=== PATIENT | female | born 1950 | race Caucasian/White ===

== ENCOUNTER → 2019-01-17 16:54 | Outpatient (CLI) | payer MEDICARE, SELFPAY ==
--- NOTE | 2019-01-17 16:58 | DI.MRI.S_ITS ---
PROCEDURE: MR LUMBAR SPINE WO CON INDICATIONS: LOW BACK PAIN WITH RIGHT LEG RADICULAR PAIN TECHNIQUE: Noncontrast sagittal T1 spin echo and T2 fast echo, sagittal STIR, axial T1 and T2 fast spin echo through the lumbar spine. In cases with scoliosis, additional coronal T2 fast spin echo may be performed. COMPARISON: [facility] [place], CR, SPINE LUMB 6+VW, 06/21/2016, 16:34. [facility], MR, L-SPINE WITHOUT CONTRAST, 05/28/2015, 7:36. FINDINGS: Image quality: Excellent. Alignment and Curvature: There is normal bony alignment. Bone Marrow: Marrow is of normal overall signal. No acute vertebral body compression fractures. Spinal Cord: Conus medullaris terminates at the L1-L2 level. Visualized cord demonstrates normal signal and size. Paraspinous Soft Tissues: No paravertebral masses. T12-L1: No canal stenosis or foraminal stenosis. Facet joints are unremarkable. L1-L2: Not significantly changed. Moderate chronic disc height loss. Mild posterior disc plus osteophyte. No canal stenosis mild bilateral foraminal stenosis. Mild bilateral facet hypertrophy. L2-L3: Not significantly changed. Moderate to severe disc height loss. Posterior disc bulge. Mild bilateral foraminal stenosis. Mild bilateral facet hypertrophy. L3-L4: Not significantly changed. Moderate disc height loss. Mild disc bulge. No canal stenosis. Mild bilateral foraminal stenosis. Disc material abuts the left L3 nerve root in the foramen. Bilateral facet hypertrophy. L4-L5: No canal stenosis. Mild right and an impressive left facet hypertrophy. Moderate right foraminal stenosis secondary to disc bulge and facet and ligament hypertrophy. There is impingement on the right L4 nerve root sleeve in the right foramen. There is mild left foraminal stenosis. L5-S1: Bilateral facet hypertrophy. No canal stenosis or foraminal stenosis. IMPRESSION: 1. No central canal stenosis. 2. Multilevel facet hypertrophy. 3. Multilevel foraminal narrowing as described above. This includes moderate right foraminal stenosis at L4-L5 with impingement on the right L4 nerve root sleeve. Question: Does this patient have a right L4 radiculopathy? Dictated by: Rashad Call M.D. on 01/17/2019 at 19:50 Approved by: Rashad Call M.D. on 01/17/2019 at 20:01
== END ==
PROVIDERS: PCP Family Medicine; Visit Provider Physical Medicine & Rehabilitation Pain Medicine
DX: M54.5 Low back pain (principal); M54.16 Radiculopathy, lumbar region; M48.061 Spinal stenosis, lumbar region without neurogenic claudication
CPT/HCPCS: 72148

== ENCOUNTER → 2021-07-14 11:11 | Outpatient (CLI) | payer MEDICARE, SELFPAY ==
--- NOTE | 2021-07-14 | DI.MRI.S_ITS ---
PROCEDURE: MR LUMBAR SPINE WO CON INDICATIONS: Spinal stenosis, lumbar region TECHNIQUE: Noncontrast sagittal T1 spin echo and T2 fast echo, sagittal STIR, axial T1 and T2 fast spin echo through the lumbar spine. In cases with scoliosis, additional coronal T2 fast spin echo may be performed. COMPARISON: [facility], MR, MR LUMBAR SPINE WO CON, 01/17/2019, 17:07. [facility] [place], CR, XR LUMBAR SPINE WITH OLBIQUES PLUS FLEXION EXTENSION, 01/08/2019, 11:48. [facility] [place], CR, XR LUMBAR SPINE WITH OLBIQUES PLUS FLEXION EXTENSION, 06/23/2021, 9:23. [facility], MR, L-SPINE WITHOUT CONTRAST, 05/28/2015, 7:36. FINDINGS: Image quality: Diagnostic, with note made of motion artifact. Alignment and Curvature: There is minimal retrolisthesis seen at L1-L2, L2-L3, and L3-L4. Bone Marrow: Marrow is of normal overall signal. No acute vertebral body compression fractures. Spinal Cord: Conus medullaris terminates at the L1 level. Visualized cord demonstrates normal signal and size. Paraspinous Soft Tissues: No paravertebral masses. T12-L1: Normal appearance. L1-L2: Mild loss of disc height is seen. Loss of disc signal is seen. Bridging endplate osteophytes are seen. Mild to moderate disc bulge is seen. Mild facet joint hypertrophy is seen. At least moderate bilateral neural foraminal narrowing is seen, left worse than right. Mild central canal narrowing is seen. There is slight progression compared to 2019. L2-L3: At least moderate loss of disc height and disc signal can be seen. At least moderate disc bulge is seen, which is eccentric to the left. There is a superimposed central disc protrusion. Bridging endplate osteophytes are seen. There is moderate to severe bilateral neural foraminal narrowing seen. There is a degree of compression seen upon the exiting nerve roots. At least moderate central canal narrowing is seen at this level. These degenerative changes are worse than in 2019. L3-L4: Moderate loss of disc height is seen. Loss of disc signal is seen. Moderate generalized disc bulge is seen. Moderate facet joint hypertrophy is seen. Moderate to severe bilateral neural foraminal narrowing is seen, right worse than left. There is a degree of compression seen upon the exiting nerve roots. Mild to moderate central canal narrowing is seen. When compared to 2019, these degenerative changes have progressed. L4-L5: The disc height is well-preserved. Loss of disc signal is seen at this level. At least moderate disc bulge is seen. There is a superimposed central disc protrusion. There is at least moderate facet hypertrophy seen, left worse than right. Moderate to severe bilateral neural foraminal narrowing can be seen, right worse than left. There is a degree of compression seen upon the exiting nerve roots. Moderate central canal narrowing is seen. These degenerative changes are mildly progressed compared to 2019. L5-S1: The disc height and disk signal are well-preserved. Mild generalized disc bulge is seen. At least moderate facet hypertrophy is seen at this level. There is moderate right-sided and no significant left-sided neural foraminal narrowing seen. No central canal narrowing is seen. When comparison is made with the prior images, these findings are similar. IMPRESSION: Lumbar spine degenerative change are seen, which have progressed at several levels compared to 2019. Dictated by: Brent Yanes M.D. on 07/14/2021 at 12:47 Approved by: Brent Yanes M.D. on 07/14/2021 at 12:52
== END ==
PROVIDERS: PCP Family Medicine; Referring Provider Physical Medicine & Rehabilitation Pain Medicine; Visit Provider Physical Medicine & Rehabilitation Pain Medicine
DX: M48.07 Spinal stenosis, lumbosacral region (principal); M48.062 Spinal stenosis, lumbar region with neurogenic claudication; M47.816 Spondylosis without myelopathy or radiculopathy, lumbar region; M47.817 Spondylosis without myelopathy or radiculopathy, lumbosacral region
CPT/HCPCS: 72148

== ENCOUNTER → 2021-12-20 11:19 | Outpatient (CLI) | payer MEDICARE, SELFPAY ==
--- NOTE | 2021-12-20 11:22 | DI.RAD.S_ITS ---
PROCEDURE: XR KNEE LT 3V INDICATIONS: Knee pain TECHNIQUE: 3 views of the knee were acquired. COMPARISON: [facility], CR, KNEES BILATERAL 1V, 02/12/2009, 10:38. FINDINGS: Bones: No fractures or dislocations. Tiny superior patellar osteophyte. No suspicious bony lesions. Soft tissues: Trace joint effusion. No suspicious soft tissue calcifications. Chondrocalcinosis. IMPRESSION: Mild left knee DJD. Chondrocalcinosis. Dictated by: Geovany Aguilar M.D. on 12/20/2021 at 12:04 Approved by: Geovany Aguilar M.D. on 12/20/2021 at 12:05
== END ==
PROVIDERS: PCP Family Medicine; Referring Provider Nurse Practitioner Critical Care Medicine; Visit Provider Nurse Practitioner Critical Care Medicine
DX: M17.12 Unilateral primary osteoarthritis, left knee (principal); M11.262 Other chondrocalcinosis, left knee; M25.562 Pain in left knee
CPT/HCPCS: 73562

== ENCOUNTER → 2021-12-25 11:01 | Outpatient (CLI) | payer MEDICARE, SELFPAY ==
--- NOTE | 2021-12-25 | DI.MRI.S_ITS ---
PROCEDURE: MR THORACIC SPINE WO CON INDICATIONS: Dorsalgia, unspecified TECHNIQUE: Noncontrast sagittal T1 spine echo and T2 fast spin echo, sagittal STIR, axial T1 and T2 fast spin echo through the thoracic spine. COMPARISON: [facility] [place], CR, XR THORACIC SPINE 2 VIEWS, 12/08/2021, 9:52. FINDINGS: Image quality: Excellent. Alignment and Curvature: Accentuated thoracic kyphosis is seen. Images are repeated, with some improvement. Bone Marrow: Marrow is of normal overall signal. No acute vertebral body compression fractures. Spinal Cord: Visualized spinal cord is normal in size and signal. Paraspinous Soft Tissues: No paravertebral masses. Miscellaneous: Mild degenerative changes are seen, with scattered levels of minimal to mild disc space narrowing. Several levels of mild bridging anterior osteophytes can be seen. No significant neural foraminal or central canal narrowing can be seen. IMPRESSION: Accentuated thoracic kyphosis, with mild, age-appropriate degenerative changes. No recent fracture. No significant neural foraminal or central canal narrowing can be seen. Dictated by: Brent Yanes M.D. on 12/25/2021 at 11:46 Approved by: Brent Yanes M.D. on 12/25/2021 at 11:48
== END ==
PROVIDERS: PCP Family Medicine; Referring Provider Physical Medicine & Rehabilitation Pain Medicine; Visit Provider Physical Medicine & Rehabilitation Pain Medicine
DX: M40.204 Unspecified kyphosis, thoracic region (principal); M47.814 Spondylosis without myelopathy or radiculopathy, thoracic region; M54.9 Dorsalgia, unspecified
CPT/HCPCS: 72146

== ENCOUNTER 2022-10-25 09:15 | Emergency (ER) | payer MEDICARE, SELFPAY ==
[2022-10-25] VITALS (30 sets, daily range): BP systolic 126–177; BP diastolic 56–85; PULSE 68–110; RESP 12–29; TEMP 36.1–36.6; O2SAT 95–99; BMI 29.9
--- NOTE | 2022-10-25 09:45 | DI.RAD.S_ITS ---
PROCEDURE: XR CHEST 1V INDICATIONS: SOB TECHNIQUE: One view of the chest was acquired. COMPARISON: None. FINDINGS: Surgical changes and devices: None. Lungs and pleura: Lungs are clear. No pleural effusions or pneumothorax. Mediastinum: Mediastinal contours appear normal. Heart size is normal. Bones and chest wall: Right 7th minimally displaced rib fracture. Overlying soft tissues appear unremarkable. IMPRESSION: Minimally displaced 7th right rib fracture. Dictated by: Maria Victoria Mcleod M.D. on 10/25/2022 at 10:13 Approved by: Maria Victoria Mcleod M.D. on 10/25/2022 at 10:14
--- NOTE | 2022-10-25 09:45 | ED.ARRPALP ---
HPI - Arrhythmia/Palpitations General Chief Complaint: Arrhythmia/Palpitations Stated Complaint: sent by Malachi BP 164/70 pulse 111 resting T-3 Time Seen by Provider: 10/25/22 09:26 Source: patient Mode of arrival: Ambulatory History of Present Illness HPI narrative: Patient is a 72-year-old female who was sent to the emergency department by her primary doctor. States that approximately 1 week ago she had a fairly sudden onset of having nausea and feeling like she was going to have diarrhea. She ended up not throwing up but did have diarrhea for several days. That has completely resolved. Since that time she states that she is had issues with shortness of breath on exertion and also an elevated heart rate on exertion. She denies chest pain. No lightheadedness. She did have episodes where she feel like her legs were giving out on her and also her arms tingling. She denies any fevers. She is tolerating oral intake. She does have a history of asthma. She is taking her asthma medications at home but she states that she only uses them occasionally prior to this and they were older prescriptions. She took her blood pressure and the systolic was in the 160s. She contacted her primary doctor's office who told her to come to the emergency department. When she is lying down in bed she is asymptomatic. Related Data Home Medications Medication Instructions Recorded Confirmed ASPIRIN (#ASPIRIN EC) 325 mg PO PRN ##0 01/18/11 12/20/21 loratadine 10 mg tablet 10 mg PO PRN ##0 01/18/11 12/20/21 montelukast 10 mg tablet 10 mg PO QPM 01/08/19 12/20/21 (Singulair) paroxetine HCl 20 mg tablet (Paxil) 20 mg PO DAILY 01/08/19 12/20/21 Previous Rx's Medication Instructions Recorded fluticasone propionate 50 2 spray intranasal BID ##1 02/10/11 mcg/actuation nasal spray,suspension diclofenac sodium 1 % topical gel 2 g topical QID PRN pain #100 grams 12/20/21 (Voltaren Arthritis Pain) hydrocodone 5 mg-acetaminophen 325 1 tab PO Q8H PRN pain #14 tabs 12/20/21 mg tablet meloxicam 7.5 mg tablet (Mobic) 7.5 mg PO DAILY PRN pain #20 tabs 12/20/21 Allergies Allergy/AdvReac Type Severity Reaction Status Date / Time morphine [MORPHINE] AdvReac Unknown upset Verified 10/25/22 09:24 stomach Review of Systems Review of Systems ROS Unobtainable: All systems reviewed & are unremarkable except as noted in HPI and below Patient History Medical History Asthma Left knee injury Social History Smoking Status: Never smoker Smoking Status: Never smoker alcohol intake frequency: 0-2 drinks per day Substance Use Type: does not use Exam Initial Vital Signs Initial Vital Signs: Vital Signs Temperature 97 F L 10/25/22 09:19 Pulse Rate 95 H 10/25/22 09:19 Respiratory Rate 14 10/25/22 09:19 Blood Pressure 177/85 H 10/25/22 09:19 Pulse Oximetry 99 10/25/22 09:19 Oxygen Delivery Method Room Air 10/25/22 09:19 Const General: cooperative, comfortable and No ill appearing HENMT Head: normal to inspection and normocephalic Resp Effort & Inspection: normal respiratory effort Auscultation: clear to auscultation bilaterally Cardio Rate: regular rate Rhythm: regular rhythm GI Inspection: normal to inspection Palpation: soft and No tender Skin General: no rashes or lesions noted Neuro General: patient alert, patient awake, patient oriented x3 and moves all extremities Cognition: normal cognition Speech: speech normal Extrem General: normal to inspection, capillary refill normal and No edema Course Orders Ordered: ED Orders 10/25/22 09:45 XR chest 1V Stat 10/25/22 10:00 Complete Blood Count AUTO DIFF Stat Comprehensive Metabolic Panel Stat D Dimer Stat Free T3, Triiodothyronine Free Stat Free T4, Direct Thyroxine Stat Lipase Stat NT-proBNP (BNP-Adult 18+) Stat Thyroid Stimulating Hormone Stat Troponin & CK Cardiac Panel Stat 10/25/22 10:10 Covid-19 + FLU A/B + RSV - PCR Stat 10/25/22 12:02 Packed Cells Stat Type and Screen Stat Discontinued Medications Sodium Chloride (Normal Saline 0.9%) 1,000 mls @ 500 mls/hr IV BOLUS ONE Stop: 10/25/22 11:48 Last Infusion: 10/25/22 12:14 Dose: 0 mls/hr Documented By: Admin: 10/25/22 10:12 Dose: 500 mls/hr Documented By: MARSHA Vital Signs Vital signs: Vital Signs - 8 hr 10/25/22 11:20 10/25/22 11:20 10/25/22 11:30 Temperature Pulse Rate 68 76 Respiratory Rate 29 H 22 Blood Pressure 158/73 H Blood Pressure [Left Arm] Pulse Oximetry 99 99 Oxygen Delivery Method 10/25/22 11:31 10/25/22 11:31 10/25/22 12:00 Temperature Pulse Rate 76 73 Respiratory Rate 27 H 18 Blood Pressure 170/80 H Blood Pressure [Left Arm] Pulse Oximetry 99 97 Oxygen Delivery Method 10/25/22 12:01 10/25/22 12:01 10/25/22 12:40 Temperature Pulse Rate 78 74 Respiratory Rate 22 Blood Pressure 149/65 H Blood Pressure [Left Arm] Pulse Oximetry 95 Oxygen Delivery Method 10/25/22 12:42 10/25/22 12:42 10/25/22 13:00 Temperature Pulse Rate 73 Respiratory Rate 16 Blood Pressure 134/63 134/60 Blood Pressure [Left Arm] Pulse Oximetry 98 Oxygen Delivery Method 10/25/22 13:00 10/25/22 13:27 10/25/22 13:57 Temperature 97.9 F Pulse Rate 68 80 78 Respiratory Rate 13 17 22 Blood Pressure 126/56 L Blood Pressure [Left Arm] 134/60 Pulse Oximetry 98 96 Oxygen Delivery Method Room Air 10/25/22 14:16 10/25/22 13:30 10/25/22 13:30 Temperature 97.9 F Pulse Rate 72 72 Respiratory Rate 18 19 Blood Pressure 158/70 H 136/64 Blood Pressure [Left Arm] Pulse Oximetry 97 Oxygen Delivery Method 10/25/22 13:58 10/25/22 13:58 10/25/22 14:00 Temperature Pulse Rate 75 Respiratory Rate 20 Blood Pressure 126/56 L 142/64 H Blood Pressure [Left Arm] Pulse Oximetry 98 Oxygen Delivery Method 10/25/22 14:00 10/25/22 14:15 10/25/22 14:15 Temperature Pulse Rate 76 75 Respiratory Rate 12 16 Blood Pressure 161/70 H Blood Pressure [Left Arm] Pulse Oximetry 97 97 Oxygen Delivery Method 10/25/22 14:16 10/25/22 14:16 10/25/22 14:18 Temperature Pulse Rate 72 72 Respiratory Rate 15 13 Blood Pressure 167/76 H Blood Pressure [Left Arm] Pulse Oximetry 98 99 Oxygen Delivery Method 10/25/22 14:18 10/25/22 14:30 10/25/22 14:30 Temperature Pulse Rate 72 Respiratory Rate 19 Blood Pressure 158/70 H 144/56 H Blood Pressure [Left Arm] Pulse Oximetry 98 Oxygen Delivery Method 10/25/22 14:45 10/25/22 14:45 10/25/22 15:00 Temperature Pulse Rate 72 Respiratory Rate 13 Blood Pressure 148/63 H 140/67 Blood Pressure [Left Arm] Pulse Oximetry 98 Oxygen Delivery Method 10/25/22 15:00 10/25/22 16:40 10/25/22 15:15 Temperature Pulse Rate 70 110 H 71 Respiratory Rate 14 13 Blood Pressure Blood Pressure [Left Arm] Pulse Oximetry 99 97 98 Oxygen Delivery Method 10/25/22 15:15 10/25/22 15:30 10/25/22 15:30 Temperature Pulse Rate 70 Respiratory Rate 16 Blood Pressure 137/63 138/65 Blood Pressure [Left Arm] Pulse Oximetry 99 Oxygen Delivery Method 10/25/22 15:45 10/25/22 15:45 10/25/22 16:00 Temperature Pulse Rate 72 Respiratory Rate 13 Blood Pressure 144/69 H 151/72 H Blood Pressure [Left Arm] Pulse Oximetry 98 Oxygen Delivery Method 10/25/22 16:00 10/25/22 16:15 10/25/22 16:15 Temperature Pulse Rate 74 74 Respiratory Rate 19 28 H Blood Pressure 154/72 H Blood Pressure [Left Arm] Pulse Oximetry 98 98 Oxygen Delivery Method 10/25/22 16:30 10/25/22 16:30 10/25/22 17:00 Temperature Pulse Rate 74 72 Respiratory Rate 18 Blood Pressure 165/73 H Blood Pressure [Left Arm] Pulse Oximetry 98 98 Oxygen Delivery Method 10/25/22 17:16 10/25/22 17:16 Temperature Pulse Rate 76 Respiratory Rate 19 Blood Pressure 147/70 H Blood Pressure [Left Arm] Pulse Oximetry 97 Oxygen Delivery Method MDM - Arrhythmia/Palpitations Lab Data Attestation: I reviewed the patient's lab results. 10/25/22 10:00 10/25/22 10:00 Labs: Lab Results 10/25/22 10/25/22 10/25/22 Range/Units 10:00 10:00 10:00 WBC 5.3 (4.5-11.0) X10^3/uL RBC 2.82 L (4.0-5.2) X10^6/uL Hgb 7.6 L (12.0-16.0) g/dL Hct 23.7 L (36-46) % MCV 84.0 (80-100) fL MCH 27.1 (26-34) PG MCHC 32.3 (30-36) % RDW 13.9 (11.6-14.8) % Plt Count 318 (150-400) X10^3/uL Neut % (Auto) 79.6 H (50-75) % Lymph % (Auto) 10.5 L (25-40) % [place] % (Auto) 8.0 (3-14) % Eos % (Auto) 0.9 L (2-4) % Baso % (Auto) 1.0 (0-2) % Neut # (Auto) 4200 (8555-2197) /uL Lymph # (Auto) 600 L (8616-6438) /uL [place] # (Auto) 400 (0-900) /uL Eos # (Auto) 0 (0-450) /uL Baso # (Auto) 100 (0-100) /uL D-Dimer (<500) ng/ml Sodium 133 L (137-145) mmol/L Potassium 4.0 (3.4-5.1) mmol/L Chloride 101 (98-107) mmol/L Carbon Dioxide 24 (22-32) mmol/L BUN 14 (7-17) mg/dL Creatinine 0.68 (0.52-1.04) mg/dL Estimated GFR > 60 (>60) mL/min BUN/Creatinine Ratio 20.6 (6-22) Glucose 105 (80-110) mg/dL Calcium 8.9 (8.4-10.2) mg/dL Total Bilirubin 0.4 (0.2-1.3) mg/dL AST 23 (14-36) IU/L ALT 16 (<35) IU/L Alkaline Phosphatase 64 (38-126) U/L Total Creatine Kinase 73 (30-135) U/L CK-MB (CK-2) TNP CK-MB (CK-2) Rel Index TNP Troponin I < 0.012 (0.01-0.034) ng/mL NT-Pro-B Natriuret Pep 290 H (<125) pg/mL Total Protein 7.4 (6.3-8.2) g/dL Albumin 4.5 (3.5-5.0) g/dL Globulin 2.9 (1.7-4.1) g/dL Albumin/Globulin Ratio 1.6 (1.0-2.8) Lipase 125 (23-300) U/L TSH (0.47-4.68) uIU/mL Free T4 (0.78-2.19) ng/dL Free T3 (2.77-5.27) pg/mL SARS-CoV-2 (PCR) (Negative) Influenza A (RT-PCR) (NEGATIVE) Influenza B (RT-PCR) (NEGATIVE) RSV (PCR) (Negative) Blood Type Antibody Screen Crossmatch 10/25/22 10/25/22 10/25/22 Range/Units 10:00 10:00 10:00 WBC (4.5-11.0) X10^3/uL RBC (4.0-5.2) X10^6/uL Hgb (12.0-16.0) g/dL Hct (36-46) % MCV (80-100) fL MCH (26-34) PG MCHC (30-36) % RDW (11.6-14.8) % Plt Count (150-400) X10^3/uL Neut % (Auto) (50-75) % Lymph % (Auto) (25-40) % [place] % (Auto) (3-14) % Eos % (Auto) (2-4) % Baso % (Auto) (0-2) % Neut # (Auto) (6163-0266) /uL Lymph # (Auto) (3185-5726) /uL [place] # (Auto) (0-900) /uL Eos # (Auto) (0-450) /uL Baso # (Auto) (0-100) /uL D-Dimer 287 (<500) ng/ml Sodium (137-145) mmol/L Potassium (3.4-5.1) mmol/L Chloride (98-107) mmol/L Carbon Dioxide (22-32) mmol/L BUN (7-17) mg/dL Creatinine (0.52-1.04) mg/dL Estimated GFR (>60) mL/min BUN/Creatinine Ratio (6-22) Glucose (80-110) mg/dL Calcium (8.4-10.2) mg/dL Total Bilirubin (0.2-1.3) mg/dL AST (14-36) IU/L ALT (<35) IU/L Alkaline Phosphatase (38-126) U/L Total Creatine Kinase (30-135) U/L CK-MB (CK-2) CK-MB (CK-2) Rel Index Troponin I (0.01-0.034) ng/mL NT-Pro-B Natriuret Pep (<125) pg/mL Total Protein (6.3-8.2) g/dL Albumin (3.5-5.0) g/dL Globulin (1.7-4.1) g/dL Albumin/Globulin Ratio (1.0-2.8) Lipase (23-300) U/L TSH 7.34 H (0.47-4.68) uIU/mL Free T4 0.92 (0.78-2.19) ng/dL Free T3 2.93 (2.77-5.27) pg/mL SARS-CoV-2 (PCR) (Negative) Influenza A (RT-PCR) (NEGATIVE) Influenza B (RT-PCR) (NEGATIVE) RSV (PCR) (Negative) Blood Type Antibody Screen Crossmatch 10/25/22 10/25/22 Range/Units 10:10 12:02 WBC (4.5-11.0) X10^3/uL RBC (4.0-5.2) X10^6/uL Hgb (12.0-16.0) g/dL Hct (36-46) % MCV (80-100) fL MCH (26-34) PG MCHC (30-36) % RDW (11.6-14.8) % Plt Count (150-400) X10^3/uL Neut % (Auto) (50-75) % Lymph % (Auto) (25-40) % [place] % (Auto) (3-14) % Eos % (Auto) (2-4) % Baso % (Auto) (0-2) % Neut # (Auto) (0465-2487) /uL Lymph # (Auto) (7165-3121) /uL [place] # (Auto) (0-900) /uL Eos # (Auto) (0-450) /uL Baso # (Auto) (0-100) /uL D-Dimer (<500) ng/ml Sodium (137-145) mmol/L Potassium (3.4-5.1) mmol/L Chloride (98-107) mmol/L Carbon Dioxide (22-32) mmol/L BUN (7-17) mg/dL Creatinine (0.52-1.04) mg/dL Estimated GFR (>60) mL/min BUN/Creatinine Ratio (6-22) Glucose (80-110) mg/dL Calcium (8.4-10.2) mg/dL Total Bilirubin (0.2-1.3) mg/dL AST (14-36) IU/L ALT (<35) IU/L Alkaline Phosphatase (38-126) U/L Total Creatine Kinase (30-135) U/L CK-MB (CK-2) CK-MB (CK-2) Rel Index Troponin I (0.01-0.034) ng/mL NT-Pro-B Natriuret Pep (<125) pg/mL Total Protein (6.3-8.2) g/dL Albumin (3.5-5.0) g/dL Globulin (1.7-4.1) g/dL Albumin/Globulin Ratio (1.0-2.8) Lipase (23-300) U/L TSH (0.47-4.68) uIU/mL Free T4 (0.78-2.19) ng/dL Free T3 (2.77-5.27) pg/mL SARS-CoV-2 (PCR) Negative (Negative) Influenza A (RT-PCR) Flu a negative (NEGATIVE) Influenza B (RT-PCR) Flu b negative (NEGATIVE) RSV (PCR) Negative (Negative) Blood Type A Negative Antibody Screen Negative Crossmatch See Detail Urine Dip Bedside Urine Glucose Negative Bedside Urine Bilirubin - Negative Bedside Urine Ketone - Negative Urine Specific [place] 1.005 Bedside Urine Occult Blood - Negative Bedside Urine pH 6.0 Bedside Urine Protein - Negative Bedside Urine Urobilinogen - Negative Bedside Urine Nitrite - Negative Bedside Urine Leukocytes - Negative Esterase Imaging Data Chest x-ray: Radiologist's Impresson: PROCEDURE:? XR CHEST 1V ? INDICATIONS:? SOB ? TECHNIQUE:? One view of the chest was acquired.? ? COMPARISON:? None. ? FINDINGS:? ? Surgical changes and devices:? None.? ? Lungs and pleura:? Lungs are clear.? No pleural effusions or pneumothorax.? ? Mediastinum:? Mediastinal contours appear normal.? Heart size is normal.? ? Bones and chest wall:? Right 7th minimally displaced rib fracture.? Overlying soft tissues appear unremarkable.? ? IMPRESSION:? Minimally displaced 7th right rib fracture. ECG Data Attestation: I personally reviewed and interpreted this ECG as follows: Interpretation: Sinus rhythm Ventricular rate is 73 Normal axis Normal QRS Normal QTC No ST T wave changes MDM Narrative Medical decision making narrative: Patient is anemic. Have no prior blood counts to compare this to. She did have 1 episode of dark colored stools approximately 1 week ago which has resolved. At a long discussion with her regarding her symptoms today. Her anemia could be the cause of her dyspnea on exertion and tachycardia although I told her that I could not be 100% sure. We discussed the risks and benefits of a blood transfusion. After this she agreed to a blood transfusion. She received 1 unit of packed red blood cells and afterward she states she feels much better. She ambulated without any issues. She no longer has the pounding in her head nor shortness of breath. Patient does require further workup to include a colonoscopy and upper endoscopy although given her improvement in symptoms she could have this done as an outpatient. I discuss this with her. We will discharge patient home with strict return precautions. She expressed understanding and agreement. Discharge Plan Departure Patient Disposition: Home Clinical Impression: Anemia Instructions: Anemia Activity Restrictions/Additional Instructions: I recommend that you continue to take all of your medications as directed however I do recommend that you stop taking the aspirin. Contact your primary doctor's office for follow-up and also the general surgery department at the number provided below to discuss the indications for an upper endoscopy/colonoscopy. Return to the emergency department for any new or worsening symptoms. Prescriptions: No Action diclofenac sodium [Voltaren Arthritis Pain] 1 % gel 2 g topical QID PRN (Reason: pain) Qty: 100 0RF Rx Instructions: apply to single elbow, wrist or hand; for hand includes palm/fingers/back of hand hydrocodone-acetaminophen 5-325 mg tablet 1 tab PO Q8H PRN (Reason: pain) Qty: 14 0RF meloxicam [Mobic] 7.5 mg tablet 7.5 mg PO DAILY PRN (Reason: pain) Qty: 20 0RF Rx Instructions: take with food and water to prevent GI ulcer paroxetine HCl [Paxil] 20 mg tablet 20 mg PO DAILY montelukast [Singulair] 10 mg tablet 10 mg PO QPM ASPIRIN (#ASPIRIN EC) 325 mg PO PRN Qty: 0 loratadine 10 MG tablet 10 mg PO PRN Qty: 0 fluticasone propionate 16 GM spray,suspension 2 spray Intranasal BID Qty: 1 3RF Referrals: Molly Murcia MD [Physician] - Tank Le MD [Primary Care Provider] - Stand Alone Forms: Patient Portal/API
[2022-10-25 10:10] LABS: Add Manual Diff / Slide Review NO; Basophils Absolute Auto 100 /uL (0-100); Eosinophils Absolute Auto 0 /uL (0-450); Eosinophils Percent Auto 0.9 % (2-4); Hematocrit 23.7 % (36-46); Hemoglobin 7.6 g/dL (12.0-16.0); Lymphocytes Absolute Auto 600 /uL (1100-4500); Lymphocytes Percent Auto 10.5 % (25-40); Mean Corpuscular HGB Conc 32.3 % (30-36); Mean Corpuscular Hemoglobin 27.1 PG (26-34); Monocytes Absolute Auto 400 /uL (0-900); Neutrophils Absolute Auto 4200 /uL (1500-7000); Neutrophils Percent Auto 79.6 % (50-75); Platelet Count 318 X10^3/uL (150-400); Red Blood Cell Count 2.82 X10^6/uL (4.0-5.2); Red Cell Distribution Width 13.9 % (11.6-14.8); White Blood Cell Count 5.3 X10^3/uL (4.5-11.0)
[2022-10-25] MEDS: SODIUM CHLORIDE 0.9% 1,000 ML 500 ML IV (10:12)
[2022-10-25 10:22] LABS: D Dimer 287 ng/ml (<500)
[2022-10-25 10:24] LABS: Creatine Kinase 73 U/L (30-135); Lipase 125 U/L (23-300)
[2022-10-25 10:25] LABS: Alanine Aminotransferase 16 IU/L (<35); Albumin 4.5 g/dL (3.5-5.0); Albumin Globulin Ratio 1.6 (1.0-2.8); Alkaline Phosphatase 64 U/L (38-126); Aspartate Aminotransferase 23 IU/L (14-36); BUN Creatinine Ratio 20.6 (6-22); Bilirubin Total 0.4 mg/dL (0.2-1.3); Blood Urea Nitrogen 14 mg/dL (7-17); Calcium 8.9 mg/dL (8.4-10.2); Carbon Dioxide 24 mmol/L (22-32); Chloride 101 mmol/L (98-107); Estimated Glomerular Filt Rate > 60 mL/min (>60); Globulin 2.9 g/dL (1.7-4.1); Glucose 105 mg/dL (80-110); HEMOLYSIS 19 (0-50); Sodium 133 mmol/L (137-145); Total Protein 7.4 g/dL (6.3-8.2)
[2022-10-25 10:37] LABS: NT-proBNP (BNP-Adult 18+) 290 pg/mL (<125); Troponin I < 0.012 ng/mL (0.01-0.034)
[2022-10-25 10:53] LABS: COVID-19 CEPHEID 4-PLEX PCR Negative (Negative); Influenza A - CEPHEID Flu A NEGATIVE (NEGATIVE); Influenza B - CEPHEID Flu B NEGATIVE (NEGATIVE); Respiratory Syncytial Virus Negative (Negative)
--- NOTE | 2022-10-25 11:18 | PC.NURSE ---
Increased heart rate to 110 and systolic BP of 160 while walking.
[2022-10-25 11:32] LABS: Thyroid Stimulating Hormone 7.34 uIU/mL (0.47-4.68)
[2022-10-25 12:14] LABS: Free T3, Triiodothyronine Free 2.93 pg/mL (2.77-5.27); Free T4, Direct Thyroxine 0.92 ng/dL (0.78-2.19)
--- NOTE | 2022-10-25 14:22 | PC.NURSE ---
Pt receiving blood transfusion at a rate of 175 mls/hr.
--- NOTE | 2022-10-25 16:45 | PC.NURSE ---
Ambulation trial per provider direction. Pt denies any chest pain, denies SOB, denies numbness and tingling of extremities. Pt reports, I feel fine! Call light within reach encouraged to use for needs.
== END 2022-10-25 17:21 | disposition home or self-care (01) ==
PROVIDERS: Emergency Provider Emergency Medicine; PCP Family Medicine
DX: D64.9 Anemia, unspecified (principal); R07.9 Chest pain, unspecified; R00.2 Palpitations; Z20.822 Contact with and (suspected) exposure to COVID-19
CPT/HCPCS: 0241U; 36415; 36430; 71045; 80053; 81003; 82550; 83690; 83880; 84439; 84443; 84481; 84484; 85025; 85379; 86850; 86900; 86901; 93005; 93010; 96360; 96361; 99285; P9016

== ENCOUNTER → 2022-11-09 10:51 | Outpatient (CLI) | payer MEDICARE, SELFPAY ==
--- NOTE | 2022-11-09 | DI.US.S_ITS ---
PROCEDURE: US THYROID INDICATIONS: Hypothyroidism, unspecified TECHNIQUE: Real-time scanning was performed of the thyroid gland, with image documentation. COMPARISON: None. FINDINGS: Right: Thyroid lobe measures 4.6 x 1.0 x 1.1 cm, and is homogeneous in echotexture. Left: Thyroid lobe measures 3.4 x 1.2 x 1.1 cm, and is homogenous in echotexture. Isthmus: 5 mm thick. Nodule number: 1 Location: Right mid Size: 0.6 x 0.4 x 0.5 cm. Composition: Solid Echogenicity: Isoechoic Shape: wider than tall. Margins: Smooth Echogenic foci: None Total points: 3 ACR TI-RADS category: 3 Nodule number: 2 Location: Inferior isthmus Size: 0.4 x 0.4 Composition: Solid Echogenicity: Hypoechoic Shape: wider than tall. Margins: Smooth Echogenic foci: None Total points: 4 ACR TI-RADS category: 4 IMPRESSION: Subcentimeter thyroid nodules. Best practice follow-up schedule is as below ACR TI-RADS definitions and recommendations: TI-RADS 1 (benign): 0 points. FNA not needed. TI-RADS 2 (not suspicious): 2 points. FNA not needed. TI-RADS 3 (mildly suspicious): 3 points. * FNA if 2.5 cm or larger, follow up if 1.5 cm or larger (at 1, 3, and 5 years). TI-RADS 4 (moderately suspicious): 4-6 points. * FNA if 1.5 cm or larger, follow up if 1 cm or larger (at 1, 2, 3, and 5 years). TI-RADS 5 (highly suspicious): 7 points or more. * FNA if 1 cm or larger, follow up if 0.5 cm or larger (every year for 5 years). Approved by: Shad Traore M.D. on 11/09/2022 at 16:43
== END ==
PROVIDERS: PCP Nurse Practitioner Family; Referring Provider Nurse Practitioner Family; Visit Provider Nurse Practitioner Family
DX: E03.9 Hypothyroidism, unspecified (principal); E04.2 Nontoxic multinodular goiter
CPT/HCPCS: 76536

== ENCOUNTER → 2023-11-10 09:33 | Outpatient (CLI) | payer MEDICARE, SELFPAY ==
--- NOTE | 2023-11-10 09:35 | DI.US.S_ITS ---
PROCEDURE: US THYROID INDICATIONS: Nontoxic multinodular goiter TECHNIQUE: Real-time scanning was performed of the thyroid gland, with image documentation. COMPARISON: [facility], US, US THYROID, 11/09/2022, 12:08. FINDINGS: Thyroid: Right lobe measures 3.6 x 1.2 x 1.2 cm. Left lobe measures 3.8 x 1.1 x 1.1 cm. Isthmus is 0.3 cm thick. Echotexture is heterogeneous. IMPRESSION: Heterogeneous thyroid gland. No discrete thyroid nodules. Please correlate with thyroid function tests. ACR TI-RADS definitions and recommendations: TI-RADS 1 (benign): 0 points. FNA not needed. TI-RADS 2 (not suspicious): 2 points. FNA not needed. TI-RADS 3 (mildly suspicious): 3 points. * FNA if 2.5 cm or larger, follow up if 1.5 cm or larger (at 1, 3, and 5 years). TI-RADS 4 (moderately suspicious): 4-6 points. * FNA if 1.5 cm or larger, follow up if 1 cm or larger (at 1, 2, 3, and 5 years). TI-RADS 5 (highly suspicious): 7 points or more. * FNA if 1 cm or larger, follow up if 0.5 cm or larger (every year for 5 years). Dictated by: Scarlet Emmanuel M.D. on 11/10/2023 at 14:39 Approved by: Scarlet Emmanuel M.D. on 11/11/2023 at 12:15
== END ==
PROVIDERS: PCP Nurse Practitioner Family; Referring Provider Physician Assistant; Visit Provider Physician Assistant
DX: E04.2 Nontoxic multinodular goiter (principal)
CPT/HCPCS: 76536

== ENCOUNTER → 2024-02-20 07:58 | Outpatient (CLI) | payer MEDICARE, SELFPAY ==
--- NOTE | 2024-02-20 08:40 | DI.MRI.S_ITS ---
PROCEDURE: MR LUMBAR SPINE WO CON INDICATIONS: Spinal stenosis, lumbar region with neurogenic claudication TECHNIQUE: Noncontrast sagittal T1 spin echo and T2 fast echo, sagittal STIR, and T2 fast spin echo through the lumbar spine. In cases with scoliosis, additional coronal T2 fast spin echo may be performed. COMPARISON: [facility], CR, XR LUMBAR SPINE WITH OBLIQUES PLUS FLEXION EXTENSION, 02/13/2024, 9:51. [facility], , MR LUMBAR SPINE WO CON, 07/14/2021, 11:20. FINDINGS: Image quality: Excellent. Alignment and Curvature: Trace retrolisthesis of L1 on L2 and L2 on L3. Bone Marrow: Marrow is of normal overall signal. No acute vertebral body compression fractures. Spinal Cord: Conus medullaris terminates at the L1 level. Visualized cord demonstrates normal signal and size. Paraspinous Soft Tissues: No paravertebral masses. T12-L1: No canal stenosis or foraminal stenosis. L1-L2: Chronic disc height loss. Trace retrolisthesis of L1 on L2. Disc bulge. Facet hypertrophy. No significant canal stenosis. Moderate bilateral foraminal stenosis. Findings are unchanged. L2-L3: Progression of disc height loss, severe. Trace retrolisthesis of L2 on L3, as before. Resolution of a central posterior disc extrusion. Posterior disc post osteophyte. Facet hypertrophy. Mild canal stenosis. Right foraminal stenosis is moderate. Left foraminal stenosis is slightly progressed, and is severe, with a degree of left foraminal L2 nerve root impingement. Reference sagittal T2 images 12 and 13 of series 2. L3-L4: Chronic disc height loss. Disc bulge. Facet hypertrophy. No significant canal stenosis. Moderate to severe right foraminal narrowing and moderate left foraminal narrowing. There is a degree of right foraminal L3 nerve root impingement. L4-L5: Prominent facet hypertrophy. Disc bulge. Unchanged [id number] canal stenosis. Unchanged moderate to severe right foraminal narrowing with flattening deformity on the exiting right L4 nerve root. L5-S1: Facet hypertrophy. No canal stenosis or significant foraminal stenosis. IMPRESSION: 1. There is underlying multilevel facet arthropathy. 2. Improvement at L2-L3. A central posterior disc extrusion has resolved. 3. Canal stenosis is mild at L2-L3 and [id number] at at L4-L5. 4. Multilevel foraminal narrowing as described above. Findings include progressed severe left foraminal narrowing at L2-L3 as well as moderate to severe right foraminal narrowing at L3-L4 and L4-L5. Dictated by: Rashad Call M.D. on 02/20/2024 at 11:08 Approved by: Rashad Call M.D. on 02/20/2024 at 11:17
== END ==
PROVIDERS: PCP Physician Assistant; Referring Provider Physical Medicine & Rehabilitation Pain Medicine; Visit Provider Physical Medicine & Rehabilitation Pain Medicine
DX: M48.062 Spinal stenosis, lumbar region with neurogenic claudication (principal); M47.816 Spondylosis without myelopathy or radiculopathy, lumbar region; M47.817 Spondylosis without myelopathy or radiculopathy, lumbosacral region
CPT/HCPCS: 72148

== ENCOUNTER → 2024-02-27 11:15 | Outpatient (CLI) | payer MEDICARE, SELFPAY | PROVIDERS: PCP Physician Assistant; Visit Provider Physician Assistant Surgical | DX: R30.0 Dysuria (principal) | CPT/HCPCS: 87086 ==

== ENCOUNTER → 2024-11-30 10:21 | Outpatient (CLI) | payer MEDICARE, SELFPAY ==
--- NOTE | 2024-11-30 10:22 | DI.US.S_ITS ---
PROCEDURE: US THYROID INDICATIONS: THYROID NODULES TECHNIQUE: Real-time scanning was performed of the thyroid gland, with image documentation. COMPARISON: [facility], US, US THYROID, 11/10/2023, 9:44. FINDINGS: Thyroid: Right lobe measures 4.1 x 1.4 x 1.5 cm. Left lobe measures 3.7 x 0.9 x 1 cm. Isthmus is 0.2 cm thick. Echotexture is heterogeneous. No actionable thyroid nodule identified. IMPRESSION: No actionable thyroid nodule identified. Heterogeneous parenchyma, nonspecific possibly from prior thyroiditis ACR TI-RADS definitions and recommendations: TI-RADS 1 (benign): 0 points. FNA not needed. TI-RADS 2 (not suspicious): 2 points. FNA not needed. TI-RADS 3: 3 points. * FNA if 2.5 cm or larger, follow up if 1.5 cm or larger (at 1, 3, and 5 years). TI-RADS 4: 4-6 points. * FNA if 1.5 cm or larger, follow up if 1 cm or larger (at 1, 2, 3, and 5 years). TI-RADS 5: 7 points or more. * FNA if 1 cm or larger, follow up if 0.5 cm or larger (every year for 5 years). Dictated by: Klaus Ndiaye M.D. on 12/01/2024 at 17:40 Approved by: Klaus Ndiaye M.D. on 12/01/2024 at 17:41
== END ==
PROVIDERS: PCP Physician Assistant; Referring Provider Physician Assistant; Visit Provider Physician Assistant
DX: E04.2 Nontoxic multinodular goiter (principal)
CPT/HCPCS: 76536

== ENCOUNTER → 2025-01-09 13:41 | Outpatient (CLI) | payer MEDICARE, SELFPAY ==
--- NOTE | 2025-01-09 13:46 | DI.RAD.S_ITS ---
PROCEDURE: XR HAND RT MIN 3V INDICATIONS: Wrist and hand pain and swelling TECHNIQUE: 3 views of the right hand acquired. COMPARISON: None. FINDINGS: Joint space narrowing and osteophytes at the radiocarpal, 1st carpal-metacarpal, 1st and 2nd metacarpophalangeal, and to a lesser degree PIP and DIP joints of the fingers. Joint space calcifications are noted at the wrist at the expected location of the triangular fibrocartilage which may be an indication of chondrocalcinosis commonly calcium pyrophosphate deposition. Hook osteophyte at the 1st metacarpal head distally also may be associated with CPPD or other inflammatory arthropathies. No radiographic evidence of displaced fracture, dislocation or high attenuation soft tissue foreign body. IMPRESSION: Chondrocalcinosis possible CPPD. Degenerative changes as discussed above. If symptoms persist or worsen, or there is high clinical suspicion of right hand/wrist abnormality, MRI could be performed. Dictated by: John Mack M.D. on 01/09/2025 at 15:35 Approved by: John Mack M.D. on 01/09/2025 at 15:40
--- NOTE | 2025-01-09 13:46 | DI.RAD.S_ITS ---
PROCEDURE: XR WRIST RT 4 views INDICATIONS: Wrist and hand pain and swelling TECHNIQUE: 4 views of the wrist were acquired. COMPARISON: None. FINDINGS: Joint space narrowing and osteophytes at the radiocarpal, 1st carpal-metacarpal, 1st and 2nd metacarpophalangeal joints. Joint space calcifications are noted at the wrist at the expected location of the triangular fibrocartilage , chondrocalcinosis commonly calcium pyrophosphate deposition. Cook osteophyte at the 1st metacarpal head distally also may be associated with CPPD or other inflammatory arthropathies. No radiographic evidence of displaced fracture, dislocation or high attenuation soft tissue foreign body. IMPRESSION: Chondrocalcinosis, possible CPPD. Degenerative changes as discussed above. If symptoms persist or worsen, or there is high clinical suspicion of hand/wrist abnormality, MRI could be performed. Dictated by: John Mack M.D. on 01/09/2025 at 15:48 Approved by: John Mack M.D. on 01/09/2025 at 15:51
== END ==
PROVIDERS: PCP Physician Assistant; Referring Provider Nurse Practitioner Family; Visit Provider Nurse Practitioner Family
DX: M11.241 Other chondrocalcinosis, right hand (principal); M11.231 Other chondrocalcinosis, right wrist; M79.89 Other specified soft tissue disorders; M25.539 Pain in unspecified wrist
CPT/HCPCS: 73110; 73130